=== PATIENT | female | born 1970 | race Caucasian/White ===

== ENCOUNTER 2022-05-03 15:16 | Emergency (ER) | payer MEDICAID ==
[~2022-05-03] VITALS: Ht 165.1 cm; Wt 73.0 kg
[2022-05-03 15:25] VITALS: BP 210/102
[2022-05-03] MEDS ORDERED: LORAZEPAM 0.5MG TABLET PO ONE (15:45)
[2022-05-03] MEDS ORDERED: ASPIRIN 81MG TABLET PO ONE (15:45)
[2022-05-03 16:10] LABS: BASOPHILS % 0.6 % (0.0-2.0); EOSINOPHILS % 9.9 % (0.0-5.0); HEMATOCRIT. 36.1 % (36.0-48.0); HEMOGLOBIN. 11.9 g/dL (12.0-16.0); LYMPHOCYTES % 22.4 % (20.0-50.0); MEAN CORPUSCULAR HEMOGLOBIN 27.9 pg (28.0-32.0); MEAN CORPUSCULAR VOLUME 84.5 fL (81.0-99.0); MEAN PLATELET VOLUME 9.7 fl (7.4-10.4); MONOCYTES % 6.4 % (2.0-8.0); NEUTROPHILS % 60.7 % (40.0-76.0); PLATELET 265 x1000/uL (130-400); RED BLOOD CELL COUNT 4.27 mill/uL (4.2-5.4); RED CELL DISTRIBUTION WIDTH 13.7 % (11.6-14.6)
[2022-05-03 16:16] LABS: CHLORIDE 105 mEq/L (98-107)
[2022-05-03] MEDS ORDERED: POTASSIUM CHLORIDE 20MEQ TABLET SR PO ONE (17:15)
== END 2022-05-03 19:54 | disposition home or self-care (01) ==
LOC: ER 15:16
DX: R07.89 Other chest pain (principal); E87.6 Hypokalemia
CPT/HCPCS: 36415; 71045; 80053; 83690; 83880; 84484; 85025; 93005; 99285; Z7610

== ENCOUNTER 2022-12-19 12:18 | Emergency (ER) | payer MEDICAID ==
[~2022-12-19] VITALS: Ht 157.5 cm; Wt 61.0 kg
[2022-12-19 12:19] VITALS: O2SAT 96
[2022-12-19] MEDS ORDERED: ONDANSETRON HCL 4MG/2ML INJ IV ONE (13:00)
[2022-12-19] MEDS ORDERED: ASPIRIN 325MG EC TABLET PO ONE (13:00)
[2022-12-19] MEDS ORDERED: MORPHINE SULFATE 4 MG/ML CPJ (NOT FOR IM USE) IV ONE (13:00)
[2022-12-19 13:08] LABS: BASOPHILS % 0.6 % (0.0-2.0); EOSINOPHILS % 12.9 % (0.0-5.0); HEMATOCRIT. 39.7 % (36.0-48.0); HEMOGLOBIN. 13.1 g/dL (12.0-16.0); LYMPHOCYTES % 25.6 % (20.0-50.0); MEAN CORPUSCULAR HEMOGLOBIN 27.8 pg (28.0-32.0); MEAN PLATELET VOLUME 9.9 fl (7.4-10.4); MONOCYTES % 5.8 % (2.0-8.0); NEUTROPHILS % 55.1 % (40.0-76.0); PLATELET 205 x1000/uL (130-400); RED BLOOD CELL COUNT 4.72 mill/uL (4.2-5.4); RED CELL DISTRIBUTION WIDTH 14.4 % (11.6-14.6); WHITE BLOOD COUNT 6.7 x1000/uL (4.5-11.0)
[2022-12-19 13:18] LABS: CHLORIDE 105 mEq/L (98-107); INDEX HEMOLYSI 1 (1-3); INDEX ICTERIC 1 (1-4); INDEX LIPEMIC 1 (1-3); POTASSIUM 2.9 mEq/L (3.5-5.1); SODIUM 141 mEq/L (136-145)
[2022-12-19 13:28] LABS: ALANINE AMINOTRANSFERASE 32 IU/L (13-61); ALBUMIN 3.3 g/dL (3.4-5.0); ASPARTATE AMINOTRANSFERASE 20 IU/L (15-37); BILIRUBIN TOTAL 0.9 mg/dL (0.1-1.0); CALCIUM 8.3 mg/dL (8.5-10.1); CARBON DIOXIDE 30 mEq/L (21-32); CREATININE 1.1 mg/dL (0.6-1.3); GLUCOSE 136 mg/dL (70-105); NT PRO B-TYPE NATRIURETIC PEP 387 pg/mL (5-125); PROTEIN TOTAL 6.8 g/dL (6.0-8.3); TROPONIN I HIGH SENSITIVITY 25 ng/L (<54); UREA NITROGEN BLOOD 29 mg/dL (7-21)
[2022-12-19] MEDS ORDERED: SODIUM CHLORIDE 0.9% 1,000 ML IV ONE (13:45)
[2022-12-19 17:33] LABS: TROPONIN I HIGH SENSITIVITY 24 ng/L (<54)
[2022-12-19] MEDS ORDERED: POTASSIUM CHLORIDE 20MEQ/PACKET PO ONE (18:15)
[2022-12-19] MEDS ORDERED: ONDA4TAB50 MT (19:07)
[2022-12-19] MEDS ORDERED: TOPUD MT (19:07)
[2022-12-19] MEDS ORDERED: MECL-299 MT (19:07)
[2022-12-19 19:16] VITALS: BP 127/89; PULSE 76; RESP 19; TEMP 98.5
== END 2022-12-19 19:34 | disposition home or self-care (01) ==
LOC: ER 12:18
DX: R42 Dizziness and giddiness (principal); R11.0 Nausea; R07.89 Other chest pain; I10 Essential (primary) hypertension
CPT/HCPCS: 99285; 96374; 71045; 96361; 96375; 80053; 83880; 85025; 84484; 36415; 93005; J2405; J2270; J7030

== ENCOUNTER 2023-02-22 11:13 | Emergency (ER) | payer MEDICAID ==
[~2023-02-22] VITALS: Ht 160 cm; Wt 81.0 kg
[~2023-02-22 11:13] MED LIST: MECL-299 MT; ONDA4TAB50 MT; TOPUD MT
[2023-02-22 11:21] VITALS: O2SAT 98
[2023-02-22 11:40] VITALS: BP 182/97; PULSE 79; RESP 30; TEMP 98.5
[2023-02-22 11:55] LABS: CLARITY URINE CLOUDY (CLEAR); COLOR URINE DARK YELLOW (YELLOW); GLUCOSE URINE 1+ (NEGATIVE); KETONES URINE TRACE (NEGATIVE); LEUKOCYTE ESTERASE URINE NEGATIVE (NEGATIVE); NITRITE URINE NEGATIVE (NEGATIVE); OCCULT BLOOD URINE NEGATIVE (NEGATIVE); PH URINE 5.5 (4.5-8.0); PROTEIN URINE 1+ (NEGATIVE); SPECIFIC GRAVITY URINE 1.025 (1.005-1.030)
[2023-02-22 11:58] LABS: BASOPHILS % 0.8 % (0.0-2.0); EOSINOPHILS % 11.6 % (0.0-5.0); HEMATOCRIT. 40.4 % (36.0-48.0); HEMOGLOBIN. 13.2 g/dL (12.0-16.0); LYMPHOCYTES % 20.4 % (20.0-50.0); MEAN CORPUSCULAR HEMOGLOBIN 28.4 pg (28.0-32.0); MEAN CORPUSCULAR HGB CONC 32.7 g/dL (31.0-37.0); MEAN CORPUSCULAR VOLUME 87.1 fL (81.0-99.0); MONOCYTES % 5.2 % (2.0-8.0); PLATELET 219 x1000/uL (130-400); RED BLOOD CELL COUNT 4.64 mill/uL (4.2-5.4); RED CELL DISTRIBUTION WIDTH 14.9 % (11.6-14.6); WHITE BLOOD COUNT 7.6 x1000/uL (4.5-11.0)
[2023-02-22 12:13] LABS: SQUAMOUS EPITHELIAL CELL URINE 3+ /lpf (RARE/1+)
[2023-02-22 12:14] LABS: RBC URINE 0-2 /hpf (0-2)
[2023-02-22 12:15] LABS: BACTERIA URINE 2+
[2023-02-22] MEDS ORDERED: ASPIRIN 81MG TABLET PO ONE (12:30)
[2023-02-22 12:36] LABS: ALANINE AMINOTRANSFERASE 11 IU/L (10-49); ASPARTATE AMINOTRANSFERASE 15 IU/L (<34); CARBON DIOXIDE 29 mEq/L (21-32); CHLORIDE 106 mEq/L (98-107); GLUCOSE 82 mg/dL (70-105); POTASSIUM 3.5 mEq/L (3.5-5.1); PROTEIN TOTAL 7.2 g/dL (6.0-8.3); SODIUM 141 mEq/L (136-145); TROPONIN I HIGH SENSITIVITY 21 ng/L (3.0-34); UREA NITROGEN BLOOD 25 mg/dL (9-23)
[2023-02-22 12:52] LABS: INR 0.9
[2023-02-22] MEDS ORDERED: LISINOPRIL 5MG TABLET PO SCH (14:00)
== END 2023-02-22 14:37 | disposition left against medical advice (07) ==
LOC: ER 11:34 → CANBEDREQ 14:28 → ER 14:37
DX: R07.89 Other chest pain (principal); I10 Essential (primary) hypertension
CPT/HCPCS: 80053; 81003; 85025; 85610; 84484; 36415; 71045; 93005; 99285; Z7610 ×2